=== PATIENT | female | born 1970 | race Caucasian/White ===

== ENCOUNTER 2019-05-20 03:35 | Emergency (ER) | payer BC ==
[2019-05-20] MEDS ORDERED: BABY ASPIRIN 81 MG CHEW PO ONE (03:52)
--- NOTE | 2019-05-20 03:59 | ERPHSYRPT ---
<LINWOODBRYNMARILEE - Last Filed: 05/20/19 07:06> - History of Present Illness Time Seen by Provider: 05/20/19 03:48 Historian: patient Exam Limitations: no limitations Patient Subjective Stated Complaint: pt is alert and oriented. pt is ambulatory with a steady gait. pt comes in with c/o sob with chest pain that radiates into her left shoulder. pt states that at this time she is just feeling chest pressure that stays in the center of her chest. pt jaqui nausea, vomiting, lightheadedness, palpitations. pt states she did feel a little dizzy earlier but that she is not now. pt radial pulses equal. heart tones regular and strong. Triage Nursing Assessment: see above Physician History: 48-year-old white female with history of hypothyroidism, high blood pressure osteoarthritis, rheumatoid arthritis, depression Patient arrives with complaints of sternal chest pain described as sharp radiating upper chest onset approximately one hour ago woke patient up from sleep associated with shortness of breath while pain was occurring currently pain had subsided she stated the pain had lasted 10 minutes patient not short of breath now at all she has no nausea or vomiting. She states she has not been sick lately. Past medical history includes hypothyroidism, high blood pressure, severe arthritis, rheumatoid arthritis, depression. Past surgical history includes cholecystectomy and carpal tunnel. Social history patient denies tobacco alcohol or illicit drug use Patient does have a merina in place for 2 years Timing/Duration: today (one hour ago) Activities at Onset: sleep Quality: sharpness Location: substernal, central Chest Pain Radiation: no radiation Severity of Pain-Max: moderate Severity of Pain-Current: none Modifying Factors: Improves With: breathing (was worse with breathing). Worsens With: antacids, coughing, defecating, eating, exertion, lying down, morphine, movement, nitroglycerin, oxygen, palpation, rest, aspirin, sitting up , change in position Associated Symptoms: nausea, vomiting, palpitations, heartburn, abdominal pain, shortness of breath, No cough, No hurts to breathe, No diaphoresis, No chills, No fever, No fatigue, No weakness, No swelling/lump in chest, No syncope, No rash, No headache, No dizziness, No edema, No back pain Prior Chest Pain/Cardiac Workup: no prior chest pain Nitro Today/Relief: no nitro taken today Aspirin Treatment Today: 81 mg x 4, provided by ED Allergies/Adverse Reactions: No Known Drug Allergies Allergy (Unverified 05/20/19 04:40) Immunizations Up to Date: Yes - Review of Systems Constitutional: No Fever, No Chills Eyes: No Symptoms Ears, Nose, & Throat: No Symptoms Respiratory: Dyspnea, No Cough Cardiac: Chest Pain Abdominal/Gastrointestinal: No Abdominal Pain, No Nausea, No Vomiting, No Diarrhea Genitourinary Symptoms: No Dysuria Musculoskeletal: No Back Pain, No Neck Pain Skin: No Rash Neurological: No Dizziness, No Focal Weakness, No Sensory Changes Psychological: No Symptoms Endocrine: No Symptoms All Other Systems: Reviewed and Negative - Past Medical History Pertinent Past Medical History: Yes Neurological History: No Pertinent History ENT History: No Pertinent History Cardiac History: Hypertension Respiratory History: No Pertinent History Endocrine Medical History: Hypothyroidism Musculoskeletal History: Osteoarthritis, Rheumatoid Arthritis GI Medical History: No Pertinent History History: No Pertinent History Psycho-Social History: Depression Female Reproductive Disorders: No Pertinent History - Past Surgical History Past Surgical History: Yes Neuro Surgical History: No Pertinent History Cardiac: No Pertinent History Respiratory: No Pertinent History Gastrointestinal: Cholecystectomy Genitourinary: No Pertinent History Musculoskeletal: Orthopedic Surgery Female Surgical History: No Pertinent History Other Surgical History: bilat carpal tunnel. - Social History Smoking Status: Former smoker Drug Use: none - Female History Hx Now: No (mirena) - Nursing Vital Signs Nursing Vital Signs: Initial Vital Signs Temperature 97.7 F 05/20/19 03:36 Pulse Rate 95 H 05/20/19 03:36 Respiratory Rate 20 05/20/19 03:36 Blood Pressure 173/108 05/20/19 03:36 O2 Sat by Pulse Oximetry 99 05/20/19 03:36 Pain Scale Pain Intensity 0 - Physical Exam General Appearance: no apparent distress, alert Eye Exam: PERRL/EOMI, eyes nml inspection Ears, Nose, Throat Exam: normal ENT inspection, moist mucous membranes Neck Exam: normal inspection, non-tender, supple, full range of motion Respiratory Exam: normal breath sounds, lungs clear, No respiratory distress Cardiovascular Exam: regular rate/rhythm, normal heart sounds, capillary refill <2 sec Gastrointestinal/Abdomen Exam: soft, No tenderness, No mass Back Exam: normal inspection, No CVA tenderness, No vertebral tenderness Extremity Exam: normal inspection, normal range of motion Neurologic Exam: alert, oriented x 3, cooperative, nurse prn II-XII nml as tested, normal mood/affect, sensation nml, No motor deficits Skin Exam: normal color, warm, dry SpO2 Interpretation: normal (100%) SpO2: 100 - Course Nursing assessment & vital signs reviewed: Yes EKG Interpreted by Me: RATE (86 bpm), Sinus Rhythm, NORMAL AXIS, Other (EKG: Sinus rhythm, 86 beats per minute, normal axis, no acute ST or T wave changes noted.) - Radiology Exams Chest X-ray Interpretation: Interpreted by me (cxr: no acute disease process noted) - CT Exams Chest CT Interpretation: Tele-radiologist Report (CTA chest: Impression: No pulmonary emboli. No acute findings) Ordered Tests: Active Orders 24 hr Category Date Time Status Electrical Tryout Person STAT Care 05/20/19 03:53 Active EKG-ER Only STAT Care 05/20/19 03:52 Active IV Insertion STAT Care 05/20/19 03:52 Active Pulse Oximetry (ED) STAT Care 05/20/19 03:52 Active CHEST 1 VIEW (PORTABLE) Stat Exams 05/20/19 03:53 Taken CHEST WITH CONTRAST [CT] Stat Exams 05/20/19 04:58 Taken AMYLASE Stat Lab 05/20/19 04:05 Completed CBC W DIFF Stat Lab 05/20/19 04:05 Completed CMP Stat Lab 05/20/19 04:05 Completed D-DIMER QUANTITATION Stat Lab 05/20/19 04:05 Completed HCG QUALITATIVE,SERUM Stat Lab 05/20/19 04:05 Completed LIPASE Stat Lab 05/20/19 04:05 Completed PROTIME WITH INR Stat Lab 05/20/19 04:05 Completed PTT Stat Lab 05/20/19 04:05 Completed TROPONIN Q3H Lab 05/20/19 04:05 Completed TROPONIN Q3H Lab 05/20/19 06:59 Completed TROPONIN Q3H Lab 05/20/19 10:00 Ordered TROPONIN Q3H Lab 05/20/19 13:00 Ordered TROPONIN Q3H Lab 05/20/19 16:00 Ordered Medication Summary Discontinued Medications Generic Name Dose Route Start Last Admin Trade Name Freq PRN Reason Stop Dose Admin Aspirin 324 mg 05/20/19 03:52 05/20/19 04:07 Baby Aspirin 81 Mg Chew PO 05/20/19 03:53 324 mg STAT ONE Administration Lab/Rad Data: Laboratory Result Diagrams 05/20/19 04:05 05/20/19 04:05 Laboratory Results 05/20/19 05/20/19 05/20/19 Range/Units 06:59 04:05 04:05 WBC (4.0-10.5) K/mm3 RBC (4.1-5.4) M/mm3 Hgb (12.0-16.0) gm/dl Hct (35-47) % MCV (78-100) fl MCH (26-32) pg MCHC (32-36) g/dl RDW (11.5-14.0) % Plt Count (150-450) K/mm3 MPV (6-9.5) fl Gran % (36.0-66.0) % Eos # (Auto) (0-0.5) Absolute Lymphs (auto) (1.0-4.6) Absolute Monos (auto) (0.0-1.3) Lymphocytes % (24.0-44.0) % Monocytes % (0.0-12.0) % Eosinophils % (0.00-5.0) % Basophils % (0.0-0.4) % Absolute Granulocytes (1.4-6.9) Basophils # (0-0.4) PT (9.95-12.35) SECONDS INR (0.8-3.0) APTT (25.3-37.0) SECONDS D-Dimer (215-500) ng/mL Sodium (137-145) mmol/L Potassium (3.5-5.1) mmol/L Chloride (98-107) mmol/L Carbon Dioxide (22-30) mmol/L Anion Gap (5-15) MEQ/L BUN (7-17) mg/dL Creatinine (0.52-1.04) mg/dL Estimated GFR ML/MIN Glucose (74-106) mg/dL Calcium (8.4-10.2) mg/dL Total Bilirubin (0.2-1.3) mg/dL AST (14-36) U/L ALT (0-35) U/L Alkaline Phosphatase (38-126) U/L Troponin I < 0.012 < 0.012 (0.000-0.034) ng/mL Serum Total Protein (6.3-8.2) g/dL Albumin (3.5-5.0) g/dL Amylase (30-110) U/L Lipase (23-300) U/L Serum , Qual NEGATIVE (Negative) 05/20/19 05/20/19 05/20/19 Range/Units 04:05 04:05 04:05 WBC (4.0-10.5) K/mm3 RBC (4.1-5.4) M/mm3 Hgb (12.0-16.0) gm/dl Hct (35-47) % MCV (78-100) fl MCH (26-32) pg MCHC (32-36) g/dl RDW (11.5-14.0) % Plt Count (150-450) K/mm3 MPV (6-9.5) fl Gran % (36.0-66.0) % Eos # (Auto) (0-0.5) Absolute Lymphs (auto) (1.0-4.6) Absolute Monos (auto) (0.0-1.3) Lymphocytes % (24.0-44.0) % Monocytes % (0.0-12.0) % Eosinophils % (0.00-5.0) % Basophils % (0.0-0.4) % Absolute Granulocytes (1.4-6.9) Basophils # (0-0.4) PT 10.3 (9.95-12.35) SECONDS INR 0.91 (0.8-3.0) APTT 31.2 (25.3-37.0) SECONDS D-Dimer 692 H* (215-500) ng/mL Sodium 139 (137-145) mmol/L Potassium 3.6 (3.5-5.1) mmol/L Chloride 105 (98-107) mmol/L Carbon Dioxide 25 (22-30) mmol/L Anion Gap 12.6 (5-15) MEQ/L BUN 16 (7-17) mg/dL Creatinine 0.69 (0.52-1.04) mg/dL Estimated GFR > 60.0 ML/MIN Glucose 95 (74-106) mg/dL Calcium 9.8 (8.4-10.2) mg/dL Total Bilirubin 0.40 (0.2-1.3) mg/dL AST 29 (14-36) U/L ALT 22 (0-35) U/L Alkaline Phosphatase 75 (38-126) U/L Troponin I (0.000-0.034) ng/mL Serum Total Protein 7.5 (6.3-8.2) g/dL Albumin 4.2 (3.5-5.0) g/dL Amylase 69 (30-110) U/L Lipase 130 (23-300) U/L Serum , Qual (Negative) 05/20/19 Range/Units 04:05 WBC 12.0 H (4.0-10.5) K/mm3 RBC 4.10 (4.1-5.4) M/mm3 Hgb 13.2 (12.0-16.0) gm/dl Hct 39.0 (35-47) % MCV 95.1 (78-100) fl MCH 32.2 H (26-32) pg MCHC 33.8 (32-36) g/dl RDW 13.5 (11.5-14.0) % Plt Count 303 (150-450) K/mm3 MPV 10.0 H (6-9.5) fl Gran % 50.7 (36.0-66.0) % Eos # (Auto) 0.18 (0-0.5) Absolute Lymphs (auto) 4.45 (1.0-4.6) Absolute Monos (auto) 1.28 (0.0-1.3) Lymphocytes % 37.0 (24.0-44.0) % Monocytes % 10.6 (0.0-12.0) % Eosinophils % 1.5 (0.00-5.0) % Basophils % 0.2 (0.0-0.4) % Absolute Granulocytes 6.10 (1.4-6.9) Basophils # 0.02 (0-0.4) PT (9.95-12.35) SECONDS INR (0.8-3.0) APTT (25.3-37.0) SECONDS D-Dimer (215-500) ng/mL Sodium (137-145) mmol/L Potassium (3.5-5.1) mmol/L Chloride (98-107) mmol/L Carbon Dioxide (22-30) mmol/L Anion Gap (5-15) MEQ/L BUN (7-17) mg/dL Creatinine (0.52-1.04) mg/dL Estimated GFR ML/MIN Glucose (74-106) mg/dL Calcium (8.4-10.2) mg/dL Total Bilirubin (0.2-1.3) mg/dL AST (14-36) U/L ALT (0-35) U/L Alkaline Phosphatase (38-126) U/L Troponin I (0.000-0.034) ng/mL Serum Total Protein (6.3-8.2) g/dL Albumin (3.5-5.0) g/dL Amylase (30-110) U/L Lipase (23-300) U/L Serum , Qual (Negative) - Progress Progress: improved Air Movement: fair Progress Note: 05/20/19 07:05 Patient's EKG no acute changes initial troponin within normal limits patient had an elevated d-dimer CTA chest no PE no acute disease process. Patient awaiting second troponin results. No further pain. Case is discussed with Dr. Mendoza. He will assume care of this patient secondary to shift change. - Departure Clinical Impression: Atypical chest pain Condition: Stable Referrals: BEATRIS HALL MD [Primary Care Provider] - Instructions: Shortness of Breath (Dyspnea) (DC) <JOHN MENDOZA - Last Filed: 05/20/19 07:42> - Progress Progress Note: pt improved, see your doctor, return if worse, serial troponins normal range, differential d/w pt as chest wall pain, hypertension, gerd, anxiety 05/20/19 07:41 Counseled pt/family regarding: lab results, diagnosis, need for follow-up, rad results - Departure Departure Disposition: Home Critical Care Time: No
[2019-05-20 04:38] LABS: AMYLASE 69 U/L (30-110); LIPASE 130 U/L (23-300)
[2019-05-20 04:39] LABS: ALBUMIN 4.2 g/dL (3.5-5.0); ALKALINE PHOSPHATASE 75 U/L (38-126); ANION GAP 12.6 MEQ/L (5-15); BLOOD UREA NITROGEN 16 mg/dL (7-17); CHLORIDE 105 mmol/L (98-107); Calcium 9.8 mg/dL (8.4-10.2); Carbon Dioxide 25 mmol/L (22-30); Creatinine 1 0.69 mg/dL (0.52-1.04); Glucose 95 mg/dL (74-106); Potassium 3.6 mmol/L (3.5-5.1); SGOT/AST 29 U/L (14-36); SGPT/ALT 22 U/L (0-35); SODIUM 139 mmol/L (137-145); Total Protein 7.5 g/dL (6.3-8.2)
[2019-05-20 04:45] LABS: BASOPHIL % 0.2 % (0.0-0.4); Basophil (Absolute #) 0.02 (0-0.4); Eosinophil % 1.5 % (0.00-5.0); Eosinophil (Absolute #) 0.18 (0-0.5); Granulocytes % 50.7 % (36.0-66.0); Hemoglobin 13.2 gm/dl (12.0-16.0); Lymphocyte (Absolute #) 4.45 (1.0-4.6); Mean Cell Volume 95.1 fl (78-100); Mean Corpuscular Hemoglobin 32.2 pg (26-32); Mean Corpuscular Hgb Concent. 33.8 g/dl (32-36); Monocyte (Absolute #) 1.28 (0.0-1.3); Monocytes % 10.6 % (0.0-12.0); Platelet Count 303 K/mm3 (150-450); Red Cell Distribution Width 13.5 % (11.5-14.0)
[2019-05-20 04:46] LABS: INR 0.91 (0.8-3.0); PROTIME 10.3 SECONDS (9.95-12.35)
[2019-05-20 04:47] LABS: PTT 31.2 SECONDS (25.3-37.0)
[2019-05-20 07:34] VITALS: BP 133/90; PULSE 79; O2SAT 99
--- NOTE | 2019-05-20 09:12 | XRAY ---
Indication: Chest pain. Comparison: November 14, 2016. Portable chest demonstrates new lingula subsegmental atelectasis/scarring with stable scattered calcified granulomas. Remaining heart, lungs, and bony thorax normal.
--- NOTE | 2019-05-20 09:12 | XRAY ---
Indication: Chest and left shoulder pain. Multiple contiguous axial images obtained through the chest using 80 cc Isovue 370 contrast and PE protocol. Comparison: None There is satisfactory opacification of the pulmonary arteries to include the lobar and segmental branches. No filling defect or pulmonary embolus. Heart is not enlarged. Aorta is normal in course and caliber. Mediastinal and right hilar calcified nodes. No pathologic mediastinal/hilar lymphadenopathy. Lungs are inflated with tiny right lower lobe calcified granuloma. No suspicious pulmonary mass, infiltrate, or effusion. Bony thorax intact with minimal degenerative changes throughout the spine. Limited upper abdomen demonstrates 2-3 mm right lobe hepatic cyst and cholecystectomy clips. Impression: 1. Negative pulmonary embolus. No acute cardiopulmonary abnormalities. 2. Evidence for old granulomatous disease and tiny hepatic cyst. Comment: Preliminary interpretation was made by [facility]. No discrepancy. CTDI 23.68
== END 2019-05-20 07:56 | disposition home or self-care (01) ==
LOC: ED 03:35
DX: R07.89 Other chest pain (principal); E03.9 Hypothyroidism, unspecified; M06.9 Rheumatoid arthritis, unspecified
CPT/HCPCS: 36000; 36415; 71045; 71260; 80053; 81025; 82150; 83690; 84484; 85025; 85379; 85610; 85730; 93005; 93041; 94760; 99284; A9270-GY

== ENCOUNTER 2021-11-17 08:56 | Emergency (ER) | payer BC ==
--- NOTE | 2021-11-17 09:32 | ERPHSYRPT ---
- History of Present Illness Time Seen by Provider: 11/17/21 09:25 Source: patient Exam Limitations: no limitations Patient Subjective Stated Complaint: Pt states "I tested positive for covid on friday and I have been sick since last week and it is not going away." Triage Nursing Assessment: Pt presented alert and oriented X 3, skin pwd Pt ambulates with an upright steady gait. Pt in no apparent respiratory distress. Pt resting comfortably on the bed. Physician History: 51 years old vaccinated for COVID-19 presented in the ER with 1 week history of generalized weakness fatigue and tiredness. Patient reports decreased oral intake with nausea and no abdominal pain. No difficulty breathing but has minimal sinus congestion. Patient tested positive for COVID-19 outpatient couple of days ago. Aches and pains all over with off-and-on headache malaise. Patient recently started Ozempic and her appetite is way down now. Timing/Duration: week(s) (1), gradual onset, worse Severity: moderate Associated Symptoms: nausea, chills, fever, headaches, loss of appetite, malaise, weakness, No vomiting, No abdominal pain, No shortness of breath, No heartburn, No diaphoresis, No cough, No chest pain Allergies/Adverse Reactions: No Known Drug Allergies Allergy (Unverified 05/20/19 04:40) Home Medications: Celecoxib [Celebrex] 100 mg PO DAILY 11/17/21 [History] Furosemide 20 mg [Lasix 20 mg] 20 mg PO DAILY 11/17/21 [History] Potassium Chloride [Klor-Con 10] 10 meq PO DAILY 11/17/21 [History] Ropinirole HCl 0.5 mg PO DAILY 11/17/21 [History] Semaglutide [Ozempic] 0.25 mg IM WEEKLY 11/17/21 [History] Upadacitinib [Rinvoq] 15 mg PO DAILY 11/17/21 [History] Venlafaxine HCl 37.5 mg [Effexor 37.5 mg] 37.5 mg PO DAILY 11/17/21 [History] Hx Tetanus, Diphtheria Vaccination/Date Given: Yes Hx Influenza Vaccination/Date Given: No Hx Pneumococcal Vaccination/Date Given: No Immunizations Up to Date: Yes Travel Risk - International Travel Have you traveled outside of the country in past 3 weeks: No - Coronavirus Screening Are you exhibiting any of the following symptoms?: No Close contact with a COVID-19 positive Pt in past 14-21 Days: No - Vaccine Status Have you recieved a Covid-19 vaccination: Yes 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 - Vaccination Dates Date of 2cond Vaccination (if applicable): 01/2021 - Review of Systems Constitutional: Fever, Fatigue, Weakness Eyes: No Symptoms Ears, Nose, & Throat: Nose Congestion, Throat Pain Respiratory: No Symptoms Cardiac: No Symptoms Abdominal/Gastrointestinal: Nausea Genitourinary Symptoms: No Symptoms Musculoskeletal: Myalgias Skin: No Symptoms Neurological: Headache Psychological: No Symptoms Endocrine: No Symptoms Hematologic/Lymphatic: No Symptoms Immunological/Allergic: No Symptoms - Past Medical History Pertinent Past Medical History: Yes Neurological History: No Pertinent History ENT History: No Pertinent History Cardiac History: Hypertension Respiratory History: No Pertinent History Endocrine Medical History: Hypothyroidism Musculoskeletal History: Fractures, Osteoarthritis, Rheumatoid Arthritis GI Medical History: No Pertinent History History: No Pertinent History Psycho-Social History: Depression Female Reproductive Disorders: No Pertinent History Other Medical History: STRESS FRACTURES. PMHX - YESENIA CARPAL SURGERY, RIGHT KNEE MENISCUS SURGERY, ADHD, TAKES LASIX FOR EDEMA (CARDIAC TESTS NEGATIVE), RLS - Past Surgical History Past Surgical History: Yes Neuro Surgical History: No Pertinent History Cardiac: No Pertinent History Respiratory: No Pertinent History Gastrointestinal: Cholecystectomy Genitourinary: No Pertinent History Musculoskeletal: Orthopedic Surgery Female Surgical History: No Pertinent History Other Surgical History: bilat carpal tunnel. - Social History Smoking Status: Former smoker Exposure to second hand smoke: No Drug Use: none Patient Lives Alone: No - Nursing Vital Signs Nursing Vital Signs: Initial Vital Signs Temperature 99.6 F 11/17/21 08:57 Pulse Rate 98 H 11/17/21 08:57 Respiratory Rate 20 11/17/21 08:57 Blood Pressure 134/80 11/17/21 08:57 O2 Sat by Pulse Oximetry 96 11/17/21 08:57 Pain Scale Pain Intensity 0 - Physical Exam General Appearance: no apparent distress, alert Eye Exam: PERRL/EOMI, eyes nml inspection Ears, Nose, Throat Exam: normal ENT inspection, pharyngeal erythema Neck Exam: normal inspection, non-tender, supple, full range of motion Respiratory Exam: normal breath sounds, lungs clear Cardiovascular Exam: regular rate/rhythm, normal heart sounds Gastrointestinal/Abdomen Exam: soft, normal bowel sounds, No tenderness Back Exam: normal inspection, normal range of motion Extremity Exam: normal inspection, normal range of motion Neurologic Exam: alert, oriented x 3, cooperative Skin Exam: normal color SpO2 Interpretation: normal SpO2: 96 O2 Delivery: Room Air Ordered Tests: Active Orders 24 hr Category Date Time Status Pier Runner STAT Care 11/17/21 10:51 Active IV Insertion STAT Care 11/17/21 10:51 Active IV Insertion-2nd Peripheral STAT Care 11/17/21 10:51 Active CBC W DIFF Stat Lab 11/17/21 09:45 Completed CMP Stat Lab 11/17/21 09:45 Completed CULTURE,URINE Stat Lab 11/17/21 11:26 Received MAG [MAGNESIUM] Stat Lab 11/17/21 09:45 Completed Manual Differential NC Stat Lab 11/17/21 09:45 Completed Pot [Potassium] Stat Lab 11/17/21 14:50 Completed UA W/RFX UR CULTURE Stat Lab 11/17/21 11:26 Completed Medication Summary Generic Name Dose Route Start Last Admin Trade Name Freq PRN Reason Stop Dose Admin Potassium Chloride 20 meq in 100 mls @ 50 mls/hr 11/17/21 10:15 11/17/21 10:38 Potassium Chloride 20 Meq In Water 100ml IV 11/17/21 14:14 50 mls/hr Q2H HUSAM Administration Magnesium Sulfate/Dextrose 100 mls @ 100 mls/hr 11/17/21 10:15 11/17/21 13:57 Magnesium 1 Gm / 100 Ml D5w IV 11/17/21 12:14 100 mls/hr Q1H HUSAM Administration Discontinued Medications Generic Name Dose Route Start Last Admin Trade Name Freq PRN Reason Stop Dose Admin Sodium Chloride 1,000 mls @ 999 mls/hr 11/17/21 10:14 11/17/21 12:11 Sodium Chloride 0.9% 1000 Ml IV 11/17/21 11:14 Infused .Q1H1M STA Infusion Sodium Chloride Confirm 11/17/21 10:34 Sodium Chloride 0.9% 1000 Ml Administered 11/17/21 10:35 Dose 1,000 mls @ ud .ROUTE .STK-MED ONE Sodium Chloride Confirm 11/17/21 13:55 Sodium Chloride 0.9% 1000 Ml Administered 11/17/21 13:56 Dose 1,000 mls @ ud .ROUTE .STK-[facility] ONE Sodium Chloride 1,000 mls @ 999 mls/hr 11/17/21 13:54 11/17/21 15:01 Sodium Chloride 0.9% 1000 Ml IV 11/17/21 14:54 Infused .Q1H1M STA Infusion Potassium Chloride 40 meq 11/17/21 10:15 11/17/21 10:37 Potassium Chloride 10 Meq Tablet PO 11/17/21 10:16 40 meq STAT ONE Administration Potassium Chloride Confirm 11/17/21 10:33 Potassium Chloride 10 Meq Tablet Administered 11/17/21 10:34 Dose 40 meq PO .K-MED ONE Lab/Rad Data: Laboratory Result Diagrams 11/17/21 09:45 11/17/21 14:50 Laboratory Results 11/17/21 11/17/21 11/17/21 Range/Units 14:50 11:26 09:45 WBC (4.0-10.5) K/mm3 RBC (4.1-5.4) M/mm3 Hgb (12.0-16.0) gm/dl Hct (35-47) % MCV (78-100) fl MCH (26-32) pg MCHC (32-36) g/dl RDW (11.5-14.0) % Plt Count (150-450) K/mm3 MPV (7.5-11.0) fl Segmented Neutrophils (36.0-66.0) % Band Neutrophils (0.0-2.0) % Lymphocytes (Manual) (24-44) % Monocytes (Manual) (0.0-12.0) % Platelet Estimate (NORMAL) RBC Morphology Sodium (137-145) mmol/L Potassium 3.7 D (3.5-5.1) mmol/L Chloride (98-107) mmol/L Carbon Dioxide (22-30) mmol/L Anion Gap (5-15) MEQ/L BUN (7-17) mg/dL Creatinine (0.52-1.04) mg/dL Estimated GFR ML/MIN Glucose (74-106) mg/dL Calcium (8.4-10.2) mg/dL Magnesium 1.4 L (1.6-2.3) mg/dL Total Bilirubin (0.2-1.3) mg/dL AST (14-36) U/L ALT (0-35) U/L Alkaline Phosphatase (38-126) U/L Serum Total Protein (6.3-8.2) g/dL Albumin (3.5-5.0) g/dL Urine Color YELLOW (YELLOW) Urine Appearance CLEAR (CLEAR) Urine pH 6.0 (5-6) Ur Specific Jenn[place] 1.006 (1.005-1.025) Urine Protein NEGATIVE (Negative) Urine Ketones TRACE (NEGATIVE) Urine Blood MODERATE (0-5) Willard/ul Urine Nitrite NEGATIVE (NEGATIVE) Urine Bilirubin NEGATIVE (NEGATIVE) Urine Urobilinogen NEGATIVE (0-1) mg/dL Ur Leukocyte Esterase NEGATIVE (NEGATIVE) Urine WBC (Auto) NONE (0-5) /HPF Urine RBC (Auto) 3-5 (0-2) /HPF U Epithel Cells (Auto) NONE (FEW) /HPF Urine Bacteria (Auto) RARE (NEGATIVE) /HPF Urine Mucus (Auto) SLIGHT (NEGATIVE) /HPF Urine Culture Reflexed ORDERED SEPARATELY (NO) Urine Glucose NEGATIVE (NEGATIVE) mg/dL 11/17/21 11/17/21 Range/Units 09:45 09:45 WBC 6.6 (4.0-10.5) K/mm3 RBC 4.19 (4.1-5.4) M/mm3 Hgb 13.5 (12.0-16.0) gm/dl Hct 39.1 (35-47) % MCV 93.3 (78-100) fl MCH 32.2 H (26-32) pg MCHC 34.5 (32-36) g/dl RDW 13.7 (11.5-14.0) % Plt Count 243 (150-450) K/mm3 MPV 9.0 (7.5-11.0) fl Segmented Neutrophils 78 H (36.0-66.0) % Band Neutrophils 4 H (0.0-2.0) % Lymphocytes (Manual) 13 L (24-44) % Monocytes (Manual) 5 (0.0-12.0) % Platelet Estimate NORMAL (NORMAL) RBC Morphology NORMAL Sodium 134 L (137-145) mmol/L Potassium 2.5 L* (3.5-5.1) mmol/L Chloride 95 L (98-107) mmol/L Carbon Dioxide 29 (22-30) mmol/L Anion Gap 13.7 (5-15) MEQ/L BUN 10 (7-17) mg/dL Creatinine 0.93 (0.52-1.04) mg/dL Estimated GFR > 60.0 ML/MIN Glucose 104 (74-106) mg/dL Calcium 8.5 (8.4-10.2) mg/dL Magnesium (1.6-2.3) mg/dL Total Bilirubin 0.50 (0.2-1.3) mg/dL AST 88 H (14-36) U/L ALT 60 H (0-35) U/L Alkaline Phosphatase 73 (38-126) U/L Serum Total Protein 7.2 (6.3-8.2) g/dL Albumin 4.2 (3.5-5.0) g/dL Urine Color (YELLOW) Urine Appearance (CLEAR) Urine pH (5-6) Ur Specific Jenners (1.005-1.025) Urine Protein (Negative) Urine Ketones (NEGATIVE) Urine Blood (0-5) Willard/ul Urine Nitrite (NEGATIVE) Urine Bilirubin (NEGATIVE) Urine Urobilinogen (0-1) mg/dL Ur Leukocyte Esterase (NEGATIVE) Urine WBC (Auto) (0-5) /HPF Urine RBC (Auto) (0-2) /HPF U Epithel Cells (Auto) (FEW) /HPF Urine Bacteria (Auto) (NEGATIVE) /HPF Urine Mucus (Auto) (NEGATIVE) /HPF Urine Culture Reflexed (NO) Urine Glucose (NEGATIVE) mg/dL - Progress Progress: improved, re-examined Progress Note: 11/17/21 15:19 51 years old with positive COVID-19 is evaluated for generalized weakness fatigue and malaise and nausea. She is given fluids, work-up showed hypokalemia and hypomagnesemia for which she is given oral and IV replacements. Recheck potassium is improved to 3.7 from earlier 2.5. Patient is not in any distress. Lungs bilateral clear to auscultation and maintaining oxygen saturation around 96% room air. Do not think he needs any imaging or work-up. Stable for discharge. Patient does have prescription of potassium at home but has not been taking for the last few days which she is advised to take it regularly. Discussed supportive care for COVID-19 and outpatient follow-up. Discussed signs symptoms of worsening needing return to ER which she seems understanding Counseled pt/family regarding: lab results, diagnosis, need for follow-up - Departure Departure Disposition: Home Clinical Impression: Viral syndrome, Hypokalemia, Hypomagnesemia Condition: Stable Critical Care Time: No Referrals: BEATRIS HALL MD [Primary Care Provider] - Follow up/PCP as directed (In 2 days for reevaluation) Instructions: Hypokalemia (DC), Viral Syndrome (DC) Additional Instructions: Drink plenty of fluids. To restart taking your potassium pills at home. Take Zofran as needed. Take Tylenol as needed. Take foods containing high potassium. Return to ER for worsening generalized weakness fatigue are having intractable nausea vomiting etc. Prescriptions: Ondansetron ODT 4 MG [Zofran Odt 4 mg] 1 ea PO QIDPRN PRN #7 tablet PRN Reason: n/v
[2021-11-17 09:59] LABS: Hematocrit 39.1 % (35-47); Hemoglobin 13.5 gm/dl (12.0-16.0); Mean Cell Volume 93.3 fl (78-100); Mean Corpuscular Hemoglobin 32.2 pg (26-32); Mean Corpuscular Hgb Concent. 34.5 g/dl (32-36); Platelet Count 243 K/mm3 (150-450); Red Blood Count 4.19 M/mm3 (4.1-5.4); Red Cell Distribution Width 13.7 % (11.5-14.0); White Blood Count 6.6 K/mm3 (4.0-10.5)
[2021-11-17 10:03] LABS: ALBUMIN 4.2 g/dL (3.5-5.0); ALKALINE PHOSPHATASE 73 U/L (38-126); ANION GAP 13.7 MEQ/L (5-15); BLOOD UREA NITROGEN 10 mg/dL (7-17); CHLORIDE 95 mmol/L (98-107); Calcium 8.5 mg/dL (8.4-10.2); Carbon Dioxide 29 mmol/L (22-30); Creatinine 1 0.93 mg/dL (0.52-1.04); EST GLOMERULAR FILTRATION RATE > 60.0 ML/MIN; Glucose 104 mg/dL (74-106); SGOT/AST 88 U/L (14-36); SGPT/ALT 60 U/L (0-35); SODIUM 134 mmol/L (137-145); Total Protein 7.2 g/dL (6.3-8.2)
[2021-11-17 10:10] LABS: Potassium 2.5 mmol/L (3.5-5.1)
[2021-11-17] MEDS ORDERED: Sodium Chloride 0.9% 1000 ML 1,000 ML IV STA ×2 (10:14→13:54)
[2021-11-17] MEDS ORDERED: Klor Con 10 MEQ PO ONE ×2 (10:15→10:33)
[2021-11-17] MEDS ORDERED: Magnesium 1 Gm / 100 Ml D5W*** 100 ML IV ONE ×2 (10:33→10:40)
[2021-11-17] MEDS ORDERED: POTASSIUM CHLORIDE 20 mEq IN WATER 100ML 200 ML IV ONE (10:34)
[2021-11-17] MEDS ORDERED: Sodium Chloride 0.9% 1000 ML 1,000 ML ONE ×2 (10:34→13:55)
[2021-11-17] MEDS: Magnesium 1 Gm / 100 Ml D5W*** 100 ML IV SCH ×2 (10:37→13:57)
[2021-11-17] MEDS: POTASSIUM CHLORIDE 20 mEq IN WATER 100ML 20 MEQ/100 ML BAG IV SCH ×2 (10:37→10:38)
[2021-11-17 11:11] LABS: BAND 4 % (0.0-2.0); Lymphocytes 13 % (24-44); Monocyte 5 % (0.0-12.0); Neutrophils 78 % (36.0-66.0); Total Cells Counted 100
[2021-11-17 11:12] LABS: Platelet Estimate NORMAL (NORMAL)
[2021-11-17 14:00] LABS: Appearance CLEAR (CLEAR); Bacteria RARE /HPF (NEGATIVE); Bilirubin NEGATIVE (NEGATIVE); Blood MODERATE Ery/ul (0-5); Glucose NEGATIVE (NEGATIVE); Ketones TRACE (NEGATIVE); Leukocyte Esterase NEGATIVE (NEGATIVE); Mucus SLIGHT /HPF (NEGATIVE); Nitrite NEGATIVE (NEGATIVE); Protein,Urine Dip NEGATIVE (Negative); Specific Gravity 1.006 (1.005-1.025); Urobilinogen NEGATIVE mg/dL (0-1)
[2021-11-17 15:18] VITALS: BP 115/88; PULSE 83
[2021-11-17 15:22] VITALS: O2SAT 96
== END 2021-11-17 15:30 | disposition home or self-care (01) ==
LOC: ED 08:56
DX: U07.1 COVID-19 (principal); E83.42 Hypomagnesemia; E87.6 Hypokalemia; R53.1 Weakness; R53.83 Other fatigue; R11.0 Nausea; R51.9 Headache, unspecified; I10 Essential (primary) hypertension; Z79.899 Other long term (current) drug therapy
CPT/HCPCS: 36000; 36415; 80053; 81001; 83735; 84132; 85025; 87086; 93041; 96360; 96361; 99285; J3475; J3480; A9270-GY

== ENCOUNTER 2022-05-18 03:40 | Emergency (ER) | payer BC ==
--- NOTE | 2022-05-18 03:57 | ERPHSYRPT ---
- History of Present Illness Time Seen by Provider: 05/18/22 03:57 Source: patient Exam Limitations: no limitations Physician History: This is an obese 51-year-old white female patient of Dr. Hall who presents the emergency department by private vehicle after 2 falls occurred this morning. She hit the back of her head and the right eyebrow. Patient did start a new m edication, lyrical, the last 4 nights to help her sleep. She stated she lost her balance. Patient has been taking Lyrica, ropinirole and tizanidine at bedtime. Patient denies chest pain. Patient denies shortness of breath. Patient has a history of hypertension, osteoarthritis and rheumatoid arthritis. Patient's systolic blood pressure upon arrival to the emergency department 66. Occurred: just prior to arrival Reason for Fall: unknown (New medication reaction), lost balance, became dizzy Injuries/Pain Location: head, face Loss of Consciousness: no loss of consciousness Quality: aching Severity of Pain-Max: mild Severity of Pain-Current: mild Associated Symptoms (Fall): denies symptoms Allergies/Adverse Reactions: baclofen Adverse Reaction (Intermediate, Verified 05/18/22 03:59) Hives meloxicam Adverse Reaction (Intermediate, Verified 05/18/22 03:59) Hives Home Medications: Furosemide 20 mg [Lasix 20 mg] 20 mg PO BID 11/17/21 [History] Potassium Chloride [Klor-Con 10] 10 meq PO DAILY 11/17/21 [History] Ropinirole HCl 1 mg PO TID 11/17/21 [History] Semaglutide [Ozempic] 1 mg IM WEEKLY 11/17/21 [History] Upadacitinib [Rinvoq] 15 mg PO DAILY 11/17/21 [History] Dextroamphetamine/Amphetamine [Adderall 15 mg Tablet] 1 tab PO BID 05/18/22 [History] Linaclotide [Linzess] 145 mcg PO DAILY 05/18/22 [History] Lisinopril/Hydrochlorothiazide [Lisinopril-Hctz 10-12.5 mg Tab] 1 tab PO DAILY 05/18/22 [History] Pregabalin [Lyrica 150Mg] 1 cap PO HS 05/18/22 [History] Tizanidine HCl 4 mg [Zanaflex 4 MG] 1 tab PO HS 05/18/22 [History] buPROPion HCl [Wellbutrin Sr] 100 mg PO BID 05/18/22 [History] Hx Tetanus, Diphtheria Vaccination/Date Given: Yes Hx Influenza Vaccination/Date Given: No Hx Pneumococcal Vaccination/Date Given: No Travel Risk - International Travel Have you traveled outside of the country in past 3 weeks: No - Coronavirus Screening Are you exhibiting any of the following symptoms?: No Close contact with a COVID-19 positive Pt in past 14-21 Days: No - Vaccine Status Have you recieved a Covid-19 vaccination: Yes Tile Inspector: Moderna - Vaccination Dates Date of 2cond Vaccination (if applicable): 01/2021 - Review of Systems Constitutional: No Symptoms Eyes: No Symptoms Ears, Nose, & Throat: No Symptoms Respiratory: No Symptoms Cardiac: No Symptoms Abdominal/Gastrointestinal: No Symptoms Genitourinary Symptoms: No Symptoms Musculoskeletal: No Symptoms Skin: Other (Laceration posterior scalp, laceration right eyebrow) Neurological: No Symptoms Psychological: No Symptoms Endocrine: No Symptoms Hematologic/Lymphatic: No Symptoms Immunological/Allergic: No Symptoms All Other Systems: Reviewed and Negative - Past Medical History Pertinent Past Medical History: Yes Neurological History: No Pertinent History ENT History: No Pertinent History Cardiac History: Hypertension Respiratory History: No Pertinent History Endocrine Medical History: Hypothyroidism Musculoskeletal History: Fractures, Osteoarthritis, Rheumatoid Arthritis GI Medical History: No Pertinent History History: No Pertinent History Psycho-Social History: Depression Female Reproductive Disorders: No Pertinent History Other Medical History: STRESS FRACTURES. PMHX - YESENIA CARPAL SURGERY, RIGHT KNEE MENISCUS SURGERY, ADHD, TAKES LASIX FOR EDEMA (CARDIAC TESTS NEGATIVE), RLS - Past Surgical History Past Surgical History: Yes Neuro Surgical History: No Pertinent History Cardiac: No Pertinent History Respiratory: No Pertinent History Gastrointestinal: Cholecystectomy Genitourinary: No Pertinent History Musculoskeletal: Orthopedic Surgery Female Surgical History: No Pertinent History Other Surgical History: bilat carpal tunnel. - Social History Smoking Status: Former smoker Exposure to second hand smoke: No Drug Use: none Patient Lives Alone: No - Nursing Vital Signs Nursing Vital Signs: Initial Vital Signs Temperature 96.6 F 05/18/22 03:41 Pulse Rate 76 05/18/22 03:41 Respiratory Rate 20 05/18/22 03:41 Blood Pressure 66/46 05/18/22 03:41 O2 Sat by Pulse Oximetry 97 05/18/22 03:41 Pain Scale Pain Intensity 6 - [place] Coma Score Best Eye Response (Joanne): (4) open spontaneously Best Verbal Response (Joanne): (5) oriented Best Motor Response ([place]): (6) obeys commands [place] Total: 15 - Physical Exam General Appearance: no apparent distress, alert, anxiety, obese Head Injury: lacerations (Right eyebrow 5 cm, posterior scalp half centimeter), tenderness (Laceration sites) Eye Exam: PERRL/EOMI, eyes nml inspection ENT Exam: airway nml Neck Exam: supple, trachea midline, full range of motion, normal alignment, normal inspection Respiratory/Chest Exam: normal breath sounds, No chest tenderness, No respiratory distress, No ecchymosis, No crepitus Cardiovascular Exam: normal heart sounds, No regular rate/rhythm Gastrointestinal Exam: soft, normal bowel sounds, No tenderness Rectal Exam: not done Back Exam: normal inspection, normal range of motion, No CVA tenderness, No vertebral tenderness Extremity Exam: normal inspection, normal range of motion, capillary refill <3 sec, pelvis stable Neurologic Exam: alert, oriented x 3, cooperative, 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 tested, normal mood/affect, nml cerebellar function, nml station & gait, sensation nml Skin Exam: laceration SpO2: 97 O2 Delivery: Room Air Procedures - Laceration/Wound Repair Right Posterior Face Time of Procedure: 04:15 Wound Location: Right (Eyebrow), head (Posterior scalp) Wound Length (cm): 5.5 (Totalhalf centimeter posterior scalp, 5 cm right eyebrow) Wound's Depth, Shape: superficial, linear Wound Explored: clean (Evaluation of both sites were to the base in a bloodless field and no foreign body noted) Irrigated: Yes Hibiclens Prep: Yes Anesthesia: 1% Lidocaine Volume Anesthetic (ccs): 5 Wound Repaired With: sutures, [place] (2 susan were used to approximate the laceration edges of the posterior scalp) Suture Size/Type: 4-0, prolene (6 simple interrupted sutures to approximate the skin edges of the laceration of the right eyebrow) Number of Sutures: 6 Layer Closure?: No - Course Nursing assessment & vital signs reviewed: Yes EKG Interpreted by Me: RATE (73), Sinus Rhythm, NORMAL AXIS, prolonged QT interval, NORMAL QRS, NORMAL ST-T, Other (No evidence of acute ischemia) Ordered Tests: Active Orders 24 hr Category Date Time Status EKG-ER Only STAT Care 05/18/22 04:02 Active IV Insertion STAT Care 05/18/22 04:02 Active CERVICAL SPINE WO CONTRAST [CT] Stat Exams 05/18/22 04:02 Taken HEAD WITHOUT CONTRAST [CT] Stat Exams 05/18/22 04:02 Taken CBC W DIFF Stat Lab 05/18/22 04:52 Completed CMP Stat Lab 05/18/22 04:52 Completed TROPONIN Q3H Lab 05/18/22 04:52 Completed TROPONIN Q3H Lab 05/18/22 07:15 Ordered TROPONIN Q3H Lab 05/18/22 10:15 Ordered TROPONIN Q3H Lab 05/18/22 13:15 Ordered TROPONIN Q3H Lab 05/18/22 16:15 Ordered Medication Summary Generic Name Dose Route Start Last Admin Trade Name Freq PRN Reason Stop Dose Admin Sodium Chloride 1,000 mls @ 999 mls/hr 05/18/22 06:02 Sodium Chloride 0.9% 1000 Ml IV 05/18/22 07:02 .Q1H1M STA Discontinued Medications Generic Name Dose Route Start Last Admin Trade Name Freq PRN Reason Stop Dose Admin Sodium Chloride 1,000 mls @ 999 mls/hr 05/18/22 04:55 05/18/22 05:02 Sodium Chloride 0.9% 1000 Ml IV 05/18/22 05:55 999 mls/hr .Q1H1M STA Administration Sodium Chloride Confirm 05/18/22 04:58 Sodium Chloride 0.9% 1000 Ml Administered 05/18/22 04:59 Dose 1,000 mls @ ud .ROUTE .STK-MED ONE Ondansetron HCl 4 mg 05/18/22 04:58 05/18/22 05:02 Ondansetron Hcl 4 Mg/2 Ml Vial IV 05/18/22 04:59 4 mg STAT ONE Administration Ondansetron HCl Confirm 05/18/22 04:58 Ondansetron Hcl 4 Mg/2 Ml Vial Administered 05/18/22 04:59 Dose 4 mg .ROUTE .STK-MED ONE Potassium Chloride 20 meq 05/18/22 05:33 05/18/22 05:35 Potassium Chloride Tab 10 Meq Tab PO 05/18/22 05:34 20 meq STAT ONE Administration Potassium Chloride Confirm 05/18/22 05:35 Potassium Chloride Tab 10 Meq Tab Administered 05/18/22 05:36 Dose 20 meq PO .STK-MED ONE Lab/Rad Data: Laboratory Result Diagrams 05/18/22 04:52 05/18/22 04:52 Laboratory Results 05/18/22 05/18/22 05/18/22 Range/Units 04:52 04:52 04:52 WBC 8.9 (4.0-10.5) x10^3/uL RBC 3.70 L (4.1-5.4) x10^6/uL Hgb 11.6 L (12.0-16.0) g/dL Hct 34.1 L (35-47) % MCV 92.2 (78-100) fL MCH 31.4 (26-32) pg MCHC 34.0 (32-36) g/dL RDW 15.0 H (11.5-14.0) % Plt Count 339 (150-450) x10^3/uL MPV 8.9 (7.5-11.0) fL Gran % 62.7 (36.0-66.0) % Immature Gran % (Auto) 0.6 H (0.00-0.4) % Nucleat RBC Rel Count 0.0 (0.00-0.1) % Eos # (Auto) 0.07 (0-0.5) x10^3/uL Immature Gran # (Auto) 0.05 H (0.00-0.03) x10^3u/L Absolute Lymphs (auto) 2.51 (1.0-4.6) x10^3/uL Absolute Monos (auto) 0.68 (0.0-1.3) x10^3/uL Absolute Nucleated RBC 0.00 (0.00-0.01) x10^3u/L Lymphocytes % 28.1 (24.0-44.0) % Monocytes % 7.6 (0.0-12.0) % Eosinophils % 0.8 (0.00-5.0) % Basophils % 0.2 (0.0-0.4) % Absolute Granulocytes 5.61 (1.4-6.9) x10^3/uL Basophils # 0.02 (0-0.4) x10^3/uL Sodium 139 (137-145) mmol/L Potassium 2.9 L* (3.5-5.1) mmol/L Chloride 101 (98-107) mmol/L Carbon Dioxide 27 (22-30) mmol/L Anion Gap 14.2 (5-15) MEQ/L BUN 25 H (7-17) mg/dL Creatinine 1.38 H (0.52-1.04) mg/dL Estimated GFR 42.7 ML/MIN Glucose 148 H (74-106) mg/dL Calcium 10.0 (8.4-10.2) mg/dL Total Bilirubin 0.40 (0.2-1.3) mg/dL AST 47 H (14-36) U/L ALT 47 H (0-35) U/L Alkaline Phosphatase 80 (38-126) U/L Troponin I < 0.012 (0.000-0.034) ng/mL Serum Total Protein 6.6 (6.3-8.2) g/dL Albumin 4.0 (3.5-5.0) g/dL - Progress Progress: improved Progress Note: 05/18/22 06:05 CAT scan of the head without contrast shows no acute intracranial abnormality. 05/18/22 06:06 Medical decision making: I believe this patient fell because of a combination of the new medication Lyrica with her tizanidine and ropinirole. Patient states that when she got out of bed she got dizzy and then lost her balance. The combination of above can certainly cause this. Lyrica is a new medication for her. We will have her stop the medication and contact her prescribing doctor on 05/20/2022 for further instructions. With less than a liter normal saline infused her blood pressure is now over 100 systolic. Counseled pt/family regarding: lab results, rad results - Departure Departure Disposition: Home Clinical Impression: Fall with significant injury, Scalp laceration, Facial laceration, Medication reaction Condition: Stable Critical Care Time: No Referrals: BEATRIS HALL MD [Primary Care Provider] - Follow up/PCP as directed Additional Instructions: Stop your Lyrica. Call your prescribing physician on 05/20/2022 for furt her instructions. Keep the laceration repair site dry for 24 hours. After 24 hours may blot dry or use a hairdryer to dry the repair sites. Placed a thin layer of antibiotic ointment of choice on the right eyebrow laceration site. Suture and staple removal in 7 days.
[2022-05-18 04:55] LABS: Absolute Neutrophil Ct (ANC) 5.61 x10^3/uL (1.4-6.9); Basophil (Absolute #) 0.02 x10^3/uL (0-0.4); Eosinophil % 0.8 % (0.00-5.0); Eosinophil (Absolute #) 0.07 x10^3/uL (0-0.5); Hematocrit 34.1 % (35-47); Hemoglobin 11.6 g/dL (12.0-16.0); Lymphocyte (Absolute #) 2.51 x10^3/uL (1.0-4.6); Lymphocytes % 28.1 % (24.0-44.0); Mean Cell Volume 92.2 fL (78-100); Mean Corpuscular Hemoglobin 31.4 pg (26-32); Mean Platelet Volume 8.9 fL (7.5-11.0); Monocyte (Absolute #) 0.68 x10^3/uL (0.0-1.3); Monocytes % 7.6 % (0.0-12.0); Neutrophil % 62.7 % (36.0-66.0); Platelet Count 339 x10^3/uL (150-450); White Blood Count 8.9 x10^3/uL (4.0-10.5)
[2022-05-18] MEDS ORDERED: Sodium Chloride 0.9% 1000 ML 1,000 ML IV STA ×2 (04:55→06:02)
[2022-05-18] MEDS ORDERED: Sodium Chloride 0.9% 1000 ML 1,000 ML ONE ×2 (04:58→06:26)
[2022-05-18] MEDS ORDERED: Zofran 4 MG/2 ML VIAL ONE (04:58)
[2022-05-18] MEDS ORDERED: Zofran 4 MG/2 ML VIAL IV ONE (04:58)
[2022-05-18 05:27] LABS: ANION GAP 14.2 MEQ/L (5-15); BILIRUBIN,TOTAL 0.4 mg/dL (0.2-1.3); Creatinine 1 1.38 mg/dL (0.52-1.04); EST GLOMERULAR FILTRATION RATE 42.7 ML/MIN; Total Protein 6.6 g/dL (6.3-8.2)
[2022-05-18 05:30] LABS: Potassium 2.9 mmol/L (3.5-5.1)
[2022-05-18] MEDS ORDERED: Klor Con PO ONE ×4 (05:33→06:40)
[2022-05-18 07:43] VITALS: BP 111/75; PULSE 69; O2SAT 98
--- NOTE | 2022-05-18 07:45 | XRAY ---
Indication: Head injury following fall. Multiple contiguous axial images obtained through the head without contrast. Comparison: None Left ear jewelry produces beam artifact. Otherwise normal appearing brain parenchyma, ventricles, and bony calvarium for patient's age. A few right occipital cutaneous susan. Visualized paranasal sinuses and mastoid air cells are clear. Impression: Beam artifact. Grossly negative CT head without contrast exam. Comment: Preliminary interpretation made by [facility]. No critical discrepancy.
--- NOTE | 2022-05-18 07:48 | XRAY ---
Indication: Head injury following fall. Multiple contiguous axial images obtained through the cervical spine. Sagittal and coronal reformatted images obtained. Comparison: None Axial images negative for acute fracture, suspicious bony lesions, or spinal canal stenosis. Minimal/mild C4-C6 degenerative endplate spurring. Mild/moderate multilevel bilateral degenerative facet hypertrophy. Sagittal and coronal reformatted images demonstrates cervical lordotic reversal centered at C5, positional versus paraspinal spasm. C4-C6 degenerative disc space narrowing. No acute compression fracture, subluxation, or jumped facet. Normal appearing craniocervical junction. Visualized noncontrasted soft tissues including lung apices are unremarkable. Impression: 1. Cervical lordotic reversal, positional versus paraspinal spasm. Negative acute fracture/subluxation. 2. Multilevel degenerative changes. Comment: Preliminary interpretation made by C. No critical discrepancy.
== END 2022-05-18 07:49 | disposition home or self-care (01) ==
LOC: ED 03:40
DX: S01.111A Laceration without foreign body of right eyelid and periocular area, initial encounter (principal); S01.01XA Laceration without foreign body of scalp, initial encounter; W19.XXXA Unspecified fall, initial encounter; R42 Dizziness and giddiness; T42.6X5A Adverse effect of other antiepileptic and sedative-hypnotic drugs, initial encounter; R51.9 Headache, unspecified; I95.9 Hypotension, unspecified; I10 Essential (primary) hypertension; Z79.899 Other long term (current) drug therapy
CPT/HCPCS: 12001; 12013; 36000; 36415; 70450; 72125; 80053; 84484; 85025; 93005; 96360; 96374; 99284; J2405; A9270-GY

== ENCOUNTER 2022-10-11 23:11 | Emergency (ER) | payer BC ==
[2022-10-11] MEDS ORDERED: Sodium Chloride 0.9% 1000 ML 1,000 ML IV STA (23:46)
--- NOTE | 2022-10-11 23:47 | ERPHSYRPT ---
- History of Present Illness Time Seen by Provider: 10/11/22 23:40 Source: patient Exam Limitations: no limitations Patient Subjective Stated Complaint: pt states she has passed out at home and has some near syncopal episodes after standing. Triage Nursing Assessment: pt alert and oriented, answers questions approp. pt back per wheelchair and transfers to stretcher with standby assist of 1. respirations nonlabored. skin warm and dry. pupils equal and reactive. bilat upper and lower ext strength equal and wnl. Physician History: This is a 52-year-old white female of Dr. Hall who has had history of syncopal episodes in the past and who has high blood pressure. Patient took her usual medication this morning and during the day she had a syncopal episode and several small near syncopal episodes since this morning's episode. She denies chest pain. She denies shortness of breath. She has no abdominal pain. She is had no fevers. This patient has had 3 episodes like this each 1 they feels about 6 months apart. The patient's last visit was 05/18/2022 for the same issue. Patient states she is taken no new medications or dosages. She has seen a neurologist in the past. She is never seen a material damage adjuster. She is never worn a Holter monitor. Her potassium was 2.9 during her last visit. I reviewed her last visit in the emergency department. Patient does have a history of arthritis and hypothyroidism. Timing/Duration: today Severity: mild (To moderate) Character of Deficits: none Deficits: no difficulties Baseline/Normal Cognition: alert oriented x 3 Current Cognition: alert oriented x 3 Baseline Gait: walks w/o assistance Associated Symptoms: denies symptoms Allergies/Adverse Reactions: baclofen Allergy (Intermediate, Verified 10/11/22 23:40) Hives meloxicam Allergy (Intermediate, Verified 10/11/22 23:40) Hives Home Medications: Furosemide 20 mg [Lasix 20 mg] 20 mg PO BID 11/17/21 [History] Potassium Chloride [Klor-Con 10] 10 meq PO DAILY 11/17/21 [History] Ropinirole HCl 1 mg PO TID 11/17/21 [History] Semaglutide [Ozempic] 1 mg IM WEEKLY 11/17/21 [History] Upadacitinib [Rinvoq] 15 mg PO DAILY 11/17/21 [History] Dextroamphetamine/Amphetamine [Adderall 15 mg Tablet] 1 tab PO BID 05/18/22 [History] Linaclotide [Linzess] 145 mcg PO DAILY 05/18/22 [History] Lisinopril/Hydrochlorothiazide [Lisinopril-Hctz 10-12.5 mg Tab] 1 tab PO DAILY 05/18/22 [History] Pregabalin [Lyrica 150Mg] 1 cap PO HS 05/18/22 [History] Tizanidine HCl 4 mg [Zanaflex 4 MG] 1 tab PO HS 05/18/22 [History] buPROPion HCl [Wellbutrin Sr] 100 mg PO BID 05/18/22 [History] Hx Tetanus, Diphtheria Vaccination/Date Given: Yes Hx Influenza Vaccination/Date Given: No Hx Pneumococcal Vaccination/Date Given: No Immunizations Up to Date: Yes Travel Risk - International Travel Have you traveled outside of the country in past 3 weeks: No - Coronavirus Screening Are you exhibiting any of the following symptoms?: No Close contact with a COVID-19 positive Pt in past 14-21 Days: No - Vaccine Status Have you recieved a Covid-19 vaccination: Yes [employer]: Moderna - Vaccination Dates Date of 2cond Vaccination (if applicable): 01/2021 - Review of Systems Constitutional: No Symptoms Eyes: No Symptoms Ears, Nose, & Throat: No Symptoms Respiratory: No Symptoms Cardiac: Syncope Abdominal/Gastrointestinal: No Symptoms Genitourinary Symptoms: No Symptoms Musculoskeletal: No Symptoms Skin: No Symptoms Neurological: No Symptoms Psychological: No Symptoms Endocrine: No Symptoms Hematologic/Lymphatic: No Symptoms Immunological/Allergic: No Symptoms All Other Systems: Reviewed and Negative - Past Medical History Pertinent Past Medical History: Yes Neurological History: Other ENT History: No Pertinent History Cardiac History: Hypertension Respiratory History: No Pertinent History Endocrine Medical History: Hypothyroidism, Other Musculoskeletal History: Arthritis, Rheumatoid Arthritis GI Medical History: No Pertinent History History: No Pertinent History Psycho-Social History: Depression Female Reproductive Disorders: No Pertinent History Other Medical History: C-SPINE SHOTS, ABLATION, 2 EPISODES OF BLACKING OUT, TO HAVE AN EEG LATER THIS WEEK. PREDIABETIC, RA IN HER HANDS. mri of brain last month and eeg for post fall memory problems- pt reports both were normal - Past Surgical History Past Surgical History: Yes Neuro Surgical History: No Pertinent History Cardiac: No Pertinent History Respiratory: No Pertinent History Gastrointestinal: Cholecystectomy Genitourinary: No Pertinent History Musculoskeletal: Orthopedic Surgery Female Surgical History: No Pertinent History Other Surgical History: bilat carpal tunnel. - Social History Smoking Status: Former smoker Exposure to second hand smoke: No Drug Use: none Patient Lives Alone: No - Nursing Vital Signs Nursing Vital Signs: Initial Vital Signs Temperature 96.4 F 10/11/22 23:24 Pulse Rate 79 10/11/22 23:24 Respiratory Rate 16 10/11/22 23:24 Blood Pressure 79/57 10/11/22 23:24 O2 Sat by Pulse Oximetry 94 L 10/11/22 23:24 Pain Scale Pain Intensity 0 - Joanne Coma Scale Best Eye Response (Joanne): (4) open spontaneously Best Verbal Response (Joanne): (5) oriented Best Motor Response ([place]): (6) obeys commands [place] Total: 15 - Physical Exam General Appearance: no apparent distress, alert, anxiety Eye Exam: bilateral eye: normal inspection, PERRL, EOMI Ears, Nose, Throat Exam: normal ENT inspection, moist mucous membranes Neck Exam: normal inspection, non-tender, supple, full range of motion Respiratory: normal breath sounds, lungs clear, airway intact, No chest tenderness, No respiratory distress Cardiovascular: regular rate/rhythm, normal heart sounds, normal peripheral pulses Gastrointestinal: soft, normal bowel sounds, No tenderness Pelvic Exam: not done Rectal Exam: not done Back Exam: normal inspection, normal range of motion, No CVA tenderness Extremity Exam: normal inspection, normal range of motion, pelvis stable Mental Status: alert, oriented x 3, 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 Exam: normal hearing, normal speech, PERRL Coordination/Gait: normal finger to nose, normal gait Motor/Sensory: no motor deficit, no sensory deficit Skin Exam: normal color, warm, dry SpO2 Interpretation: borderline oxygenation SpO2: 94 O2 Delivery: Room Air - Course Nursing assessment & vital signs reviewed: Yes EKG Interpreted by Me: RATE (75), Sinus Rhythm, NORMAL AXIS, NORMAL INTERVALS, NORMAL QRS, NORMAL ST-T, Other (No acute ischemic changes on today's EKG) Ordered Tests: Active Orders 24 hr Category Date Time Status EKG-ER Only STAT Care 10/11/22 23:46 Active IV Insertion STAT Care 10/11/22 23:46 Active HEAD WITHOUT CONTRAST [CT] Stat Exams 10/11/22 23:47 Taken CBC W DIFF Stat Lab 10/11/22 23:54 Completed CMP Stat Lab 10/11/22 23:54 Completed ETHYL ALCOHOL Stat Lab 10/11/22 23:54 Completed T4 (Thyroxine) Stat Lab 10/12/22 00:12 Completed TROPONIN Q4H Lab 10/11/22 23:54 Received TSH [TSH, 3RD Generation] Stat Lab 10/12/22 00:12 Completed UA W/RFX CULTURE Stat Lab 10/12/22 00:16 Completed Holter Monitor ONCE RT 10/12/22 00:45 Completed Medication Summary Discontinued Medications Generic Name Dose Route Start Last Admin Trade Name Freq PRN Reason Stop Dose Admin Sodium Chloride 1,000 mls @ 999 mls/hr 10/11/22 23:46 10/12/22 01:22 Sodium Chloride 0.9% 1000 Ml IV 10/12/22 00:46 Infused .Q1H1M STA Infusion Sodium Chloride Confirm 10/12/22 00:06 Sodium Chloride 0.9% 1000 Ml Administered 10/12/22 00:07 Dose 1,000 mls @ ud .ROUTE .STK-MED ONE Sodium Chloride 1,000 mls @ 999 mls/hr 10/12/22 01:06 10/12/22 03:30 Sodium Chloride 0.9% 1000 Ml IV 10/12/22 02:06 Infused .Q1H1M STA Infusion Sodium Chloride Confirm 10/12/22 01:38 Sodium Chloride 0.9% 1000 Ml Administered 10/12/22 01:39 Dose 1,000 mls @ ud .ROUTE .STK-MED ONE Lab/Rad Data: Laboratory Result Diagrams 10/11/22 23:54 Laboratory Results 10/12/22 10/12/22 10/12/22 Range/Units 00:16 00:12 00:12 WBC (4.0-10.5) x10^3/uL RBC (4.1-5.4) x10^6/uL Hgb (12.0-16.0) g/dL Hct (35-47) % MCV (78-100) fL MCH (26-32) pg MCHC (32-36) g/dL RDW (11.5-14.0) % Plt Count (150-450) x10^3/uL MPV (7.5-11.0) fL Gran % (36.0-66.0) % Immature Gran % (Auto) (0.00-0.4) % Nucleat RBC Rel Count (0.00-0.1) % Eos # (Auto) (0-0.5) x10^3/uL Immature Gran # (Auto) (0.00-0.03) x10^3u/L Absolute Lymphs (auto) (1.0-4.6) x10^3/uL Absolute Monos (auto) (0.0-1.3) x10^3/uL Absolute Nucleated RBC (0.00-0.01) x10^3u/L Lymphocytes % (24.0-44.0) % Monocytes % (0.0-12.0) % Eosinophils % (0.00-5.0) % Basophils % (0.0-0.4) % Absolute Granulocytes (1.4-6.9) x10^3/uL Basophils # (0-0.4) x10^3/uL Glucose Thyroxine (T4) 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 TSH 3rd Generation OPERATIONS PL[employer]NER Urinalys Dipstick Clnc MAIN LAB Urine Color YELLOW (YELLOW) Urine Appearance CLEAR (CLEAR) Urine pH 5.0 (5-6) Ur Specific [place] 1.020 (1.005-1.025) POC Urine Protein Conf NEGATIVE (Negative) Urine Ketones NEGATIVE (NEGATIVE) Urine Nitrite NEGATIVE (NEGATIVE) Urine Bilirubin NEGATIVE (NEGATIVE) Urine Urobilinogen 0.2 (0-1) mg/dL Urine Leukocytes NEGATIVE (NEGATIVE) Urine WBC (Auto) 0-2 (0-5) /HPF Urine RBC (Auto) 3-5 A (0-2) /HPF U Hyaline Cast (Auto) 6-10 A (0-2) /LPF U Epithel Cells (Auto) NONE (FEW) /HPF Urine Bacteria (Auto) FEW A (NEGATIVE) /HPF Urine RBC TRACE-INTACT A (0-5) [place]/ul Urine Mucus (Auto) SLIGHT A (NEGATIVE) /HPF Ur Culture Indicated? NO Urine Glucose NEGATIVE (NEGATIVE) mg/dL 10/11/22 10/11/22 Range/Units 23:54 23:54 WBC 8.3 (4.0-10.5) x10^3/uL RBC 3.97 L (4.1-5.4) x10^6/uL Hgb 12.3 (12.0-16.0) g/dL Hct 38.0 (35-47) % MCV 95.7 (78-100) fL MCH 31.0 (26-32) pg MCHC 32.4 (32-36) g/dL RDW 14.6 H (11.5-14.0) % Plt Count 348 (150-450) x10^3/uL MPV 8.9 (7.5-11.0) fL Gran % 72.9 H (36.0-66.0) % Immature Gran % (Auto) 0.6 H (0.00-0.4) % Nucleat RBC Rel Count 0.0 (0.00-0.1) % Eos # (Auto) 0.06 (0-0.5) x10^3/uL Immature Gran # (Auto) 0.05 H (0.00-0.03) x10^3u/L Absolute Lymphs (auto) 1.46 (1.0-4.6) x10^3/uL Absolute Monos (auto) 0.67 (0.0-1.3) x10^3/uL Absolute Nucleated RBC 0.00 (0.00-0.01) x10^3u/L Lymphocytes % 17.6 L (24.0-44.0) % Monocytes % 8.1 (0.0-12.0) % Eosinophils % 0.7 (0.00-5.0) % Basophils % 0.1 (0.0-0.4) % Absolute Granulocytes 6.04 (1.4-6.9) x10^3/uL Basophils # 0.01 (0-0.4) x10^3/uL Glucose OPERATIONS PLANNER Thyroxine (T4) TSH 3rd Generation Urinalys Dipstick Clnc Urine Color (YELLOW) Urine Appearance (CLEAR) Urine pH (5-6) Ur Specific [place] (1.005-1.025) POC Urine Protein Conf (Negative) Urine Ketones (NEGATIVE) Urine Nitrite (NEGATIVE) Urine Bilirubin (NEGATIVE) Urine Urobilinogen (0-1) mg/dL Urine Leukocytes (NEGATIVE) Urine WBC (Auto) (0-5) /HPF Urine RBC (Auto) (0-2) /HPF U Hyaline Cast (Auto) (0-2) /LPF U Epithel Cells (Auto) (FEW) /HPF Urine Bacteria (Auto) (NEGATIVE) /HPF Urine RBC (0-5) [place]/ul Urine Mucus (Auto) (NEGATIVE) /HPF Ur Culture Indicated? Urine Glucose (NEGATIVE) mg/dL - Progress Progress: improved Progress Note: 10/12/22 03:57 CT scan of the head without contrast shows no intracranial abnormality. Medical decision making: Patient has mild hypokalemia as she did during her last episode of syncope. We will provide her with 20 mEq of potassium orally. We are still waiting for the troponin level. The remainder of her lab results are within normal range. As we told the patient upon arrival to the emergency room, it was necessary for us to send her blood work to [facility] because the analyzer in our facility were down. We are awaiting the troponin level and we have called a couple of times and as of this moment it is still pending. I did discuss this with the family and the patient. Counseled pt/family regarding: lab results, diagnosis, need for follow-up, rad results - Departure Departure Disposition: Home Clinical Impression: Syncope, Hypokalemia, Hypotension Condition: Stable Critical Care Time: No Referrals: BEATRIS HALL MD [Primary Care Provider] - Follow up/PCP as directed Additional Instructions: Drink plenty of fluids. Hold your blood pressure medication for the next 48 hours. Wear your Holter monitor as instructed. Return the Holter monitor as instructed. Follow-up with Dr. Hall in his office on 10/14/2022.
[2022-10-11 23:57] LABS: Absolute Neutrophil Ct (ANC) 6.04 x10^3/uL (1.4-6.9); Basophil (Absolute #) 0.01 x10^3/uL (0-0.4); Eosinophil % 0.7 % (0.00-5.0); Eosinophil (Absolute #) 0.06 x10^3/uL (0-0.5); Hemoglobin 12.3 g/dL (12.0-16.0); Lymphocyte (Absolute #) 1.46 x10^3/uL (1.0-4.6); Lymphocytes % 17.6 % (24.0-44.0); Mean Cell Volume 95.7 fL (78-100); Mean Corpuscular Hgb Concent. 32.4 g/dL (32-36); Mean Platelet Volume 8.9 fL (7.5-11.0); Monocyte (Absolute #) 0.67 x10^3/uL (0.0-1.3); Monocytes % 8.1 % (0.0-12.0); Neutrophil % 72.9 % (36.0-66.0); Platelet Count 348 x10^3/uL (150-450); Red Blood Count 3.97 x10^6/uL (4.1-5.4); Red Cell Distribution Width 14.6 % (11.5-14.0); White Blood Count 8.3 x10^3/uL (4.0-10.5)
[2022-10-12] MEDS ORDERED: Sodium Chloride 0.9% 1000 ML 1,000 ML ONE ×2 (00:06→01:38)
[2022-10-12 00:28] LABS: Appearance CLEAR (CLEAR); Bilirubin NEGATIVE (NEGATIVE); Dipstick done @ ? MAIN LAB; Glucose NEGATIVE (NEGATIVE); Ketones NEGATIVE (NEGATIVE); Nitrite NEGATIVE (NEGATIVE); Protein,Urine Dip NEGATIVE (Negative); RBC TRACE-INTACT Ery/ul (0-5); Urobilinogen 0.2 mg/dL (0-1)
[2022-10-12 00:39] LABS: Bacteria FEW /HPF (NEGATIVE); Mucus SLIGHT /HPF (NEGATIVE); WBC 0-2 /HPF (0-5)
[2022-10-12 00:40] LABS: Urine Cultured Indicated? NO
[2022-10-12] MEDS ORDERED: Sodium Chloride 0.9% 1000 ML 1,000 ML IV STA (01:06)
[2022-10-12 04:01] VITALS: O2SAT 94
[2022-10-12] MEDS ORDERED: Klor Con PO ONE ×2 (04:01→04:10)
[2022-10-12 04:10] VITALS: BP 116/72; PULSE 70
--- NOTE | 2022-10-12 07:58 | XRAY ---
Indication: Syncope. Low blood pressure. Multiple contiguous axial images obtained through the head without contrast. Comparison: May 18, 2022 Normal appearing brain parenchyma, ventricles, and bony calvarium for patient's age. Visualized paranasal sinuses and mastoid air cells are clear. Impression: Continued normal CT head without contrast exam. Comment: Preliminary interpretation made by [facility]. No critical discrepancy.
== END 2022-10-12 04:27 | disposition home or self-care (01) ==
LOC: ED 23:11
DX: R55 Syncope and collapse (principal); E87.6 Hypokalemia; I95.9 Hypotension, unspecified; I10 Essential (primary) hypertension; R73.03 Prediabetes; Z79.85 Long-term (current) use of injectable non-insulin antidiabetic drugs; Z79.899 Other long term (current) drug therapy
CPT/HCPCS: 36000; 36415; 70450; 80053; 80307; 81015; 84436; 84443; 84484; 85025; 93005; 93225; 96360; 96361; 99284; A9270-GY; G0480

== ENCOUNTER 2023-03-26 12:10 | Day surgery (SDC) | payer BC ==
[2023-03-26] MEDS ORDERED: LIDOCAINE HCL 2% 100 MG/5 ML IJ ONE (12:11)
[2023-03-26 12:48] LABS: HCG URINE TEST NEGATIVE (NEGATIVE)
[2023-03-26] MEDS ORDERED: DIPRIVAN 200 MG/20 ML IV ONE (13:27)
[2023-03-26] MEDS ORDERED: Lactated Ringers 1,000 ML IV ONE (15:07)
--- NOTE | 2023-03-26 19:06 | XRAY ---
Indication: Bilateral L4-S1 MBB. Intraoperative fluoroscopy provided for 11 seconds. Single digital spot image submitted for interpretation demonstrates posterior needle tips projecting over the expected left and right L4-S1 nerve roots. Correlate with intraoperative findings/report.
--- NOTE | 2023-03-26 19:25 | XRAY ---
11 seconds of fluoroscopy was used in surgery for a bilateral L4-S1 MBB.
== END 2023-03-26 14:05 | disposition home or self-care (01) ==
LOC: SDC-PAIN 12:10
PROVIDERS: ATTEND Psychiatry & Neurology Pain Medicine
DX: M47.816 Spondylosis without myelopathy or radiculopathy, lumbar region (principal); Z79.899 Other long term (current) drug therapy
CPT/HCPCS: 64493; 64494; 72020; 77002; 81025; 82947; J2704

== ENCOUNTER 2023-05-07 11:44 | Day surgery (SDC) | payer BC ==
[2023-05-07] MEDS ORDERED: BUPIVACAINE 0.5% VIAL IJ ONE (11:45)
[2023-05-07 11:58] LABS: HCG URINE TEST NEGATIVE (NEGATIVE)
[2023-05-07] MEDS ORDERED: DIPRIVAN 200 MG/20 ML IV ONE (13:15)
[2023-05-07] MEDS ORDERED: Lactated Ringers 1,000 ML IV ONE (13:37)
--- NOTE | 2023-05-07 14:24 | XRAY ---
11 seconds of fluoroscopy was used in surgery for a bilateral L4-S1 MBB.
== END 2023-05-07 13:37 | disposition home or self-care (01) ==
LOC: SDC-PAIN 11:44
PROVIDERS: ATTEND Psychiatry & Neurology Pain Medicine
DX: M47.816 Spondylosis without myelopathy or radiculopathy, lumbar region (principal); Z79.899 Other long term (current) drug therapy
CPT/HCPCS: 64493; 64494; 72020; 77002; 81025; J2704

== ENCOUNTER 2023-06-11 11:01 | Day surgery (SDC) | payer BC ==
[2023-06-11] MEDS ORDERED: BUPIVACAINE 0.5% VIAL IJ ONE (11:02)
[2023-06-11] MEDS ORDERED: Depo-Medrol 40 MG/ML IM ONE (11:02)
[2023-06-11] MEDS ORDERED: LIDOCAINE HCL 1% 50 MG/5 ML VL PF IJ ONE (11:02)
[2023-06-11 11:40] LABS: HCG URINE TEST NEGATIVE (NEGATIVE)
[2023-06-11] MEDS ORDERED: DIPRIVAN 200 MG/20 ML IV ONE ×2 (12:22→12:28)
[2023-06-11] MEDS ORDERED: Versed 2 MG/2 ML Injection ONE (12:24)
--- NOTE | 2023-06-11 13:08 | XRAY ---
Indication: Right L4-S1 RFA. Intraoperative fluoroscopy provided for 26 seconds. 3 digital spot images submitted for interpretation demonstrates posterior needle tips projecting over the expected right L4-S1 nerve roots. Correlate with intraoperative findings/report.
[2023-06-11] MEDS ORDERED: Lactated Ringers 1,000 ML IV ONE (13:38)
--- NOTE | 2023-06-11 14:51 | XRAY ---
26 seconds of fluoroscopy was used in surgery for a right L4-S1 RFA.
== END 2023-06-11 12:52 | disposition home or self-care (01) ==
LOC: SDC-PAIN 11:01
PROVIDERS: ATTEND Psychiatry & Neurology Pain Medicine
DX: M47.816 Spondylosis without myelopathy or radiculopathy, lumbar region (principal); Z79.899 Other long term (current) drug therapy
CPT/HCPCS: 64635; 64636; 72100; 77002; 81025; J1030; J2001; J2250; J2704

== ENCOUNTER 2023-06-12 10:55 | Day surgery (SDC) | payer BC ==
[2023-06-12] MEDS ORDERED: BUPIVACAINE 0.5% VIAL IJ ONE (10:56)
[2023-06-12] MEDS ORDERED: LIDOCAINE HCL 1% 50 MG/5 ML VL PF IV ONE (10:56)
[2023-06-12] MEDS ORDERED: Depo-Medrol 40 MG/ML IM ONE (10:56)
[2023-06-12 11:13] LABS: HCG URINE TEST NEGATIVE (NEGATIVE)
[2023-06-12] MEDS ORDERED: DIPRIVAN 200 MG/20 ML IV ONE (11:53)
[2023-06-12] MEDS ORDERED: Lactated Ringers 1,000 ML IV ONE (12:57)
--- NOTE | 2023-06-12 14:03 | XRAY ---
Indication: Left L4-S1 RFA. Intraoperative fluoroscopy provided for 26 seconds. 3 digital spot image submitted for interpretation demonstrates posterior needle tips projecting over the expected left L4-S1 nerve roots. Correlate with intraoperative findings/report.
--- NOTE | 2023-06-12 14:43 | XRAY ---
26 seconds of fluoroscopy was used in surgery for a left L4-S1 RFA.
== END 2023-06-12 12:21 | disposition home or self-care (01) ==
LOC: SDC-PAIN 10:55
PROVIDERS: ATTEND Psychiatry & Neurology Pain Medicine
DX: M47.816 Spondylosis without myelopathy or radiculopathy, lumbar region (principal); Z79.899 Other long term (current) drug therapy
CPT/HCPCS: 64635; 64636; 72100; 77002; 81025; J1030; J2001; J2704

== ENCOUNTER 2023-10-01 14:55 | Day surgery (SDC) | payer BC ==
[2023-10-01] MEDS ORDERED: BUPIVACAINE 0.5% VIAL IJ ONE (14:56)
[2023-10-01] MEDS ORDERED: Depo-Medrol 40 MG/ML IM ONE (14:56)
[2023-10-01] MEDS ORDERED: XYLOCAINE-MPF 1% 5ML SDV IJ ONE (14:56)
--- NOTE | 2023-10-01 19:24 | XRAY ---
Indication: Right SI joint injection. Intraoperative fluoroscopy provided for 11 seconds. 2 digital spot image submitted for interpretation demonstrates posterior needle tip projecting over right SI joint. Correlate with intraoperative findings/report.
--- NOTE | 2023-10-02 08:59 | XRAY ---
11 seconds of fluoroscopy was used in surgery for a right sacroiliac joint injection.
== END 2023-10-01 17:47 | disposition home or self-care (01) ==
LOC: SDC-PAIN 14:55
PROVIDERS: ATTEND Psychiatry & Neurology Pain Medicine
DX: M46.1 Sacroiliitis, not elsewhere classified (principal); Z79.899 Other long term (current) drug therapy
CPT/HCPCS: 27096; 72170; 77002; 82947; J1030; Q9966; G0260